=== PATIENT | female | born 1935 | race Caucasian/White ===

== ENCOUNTER 2017-11-24 21:56 | Emergency (ER) | payer MEDICARE, BC ==
--- NOTE | 2017-11-24 22:28 | EDM.PDOC ---
ED HPI GENERAL MEDICAL PROBLEM - General Stated Complaint: LT LEG CELLULITIS Time Seen by Provider: 11/24/17 21:56 Source of Information: Reports: Patient, Family (daughter) History Limitations: Reports: No Limitations - History of Present Illness INITIAL COMMENTS - FREE TEXT/NARRATIVE: 82 y.o.w.f came to the ed with her daughter due to pain, redness and swelling of her left lower leg. Pt things she may have been stung by a bee. No N/V/D no SOB or any other acute medical issues. BP 156/65 Pulse 100 RR 10 temp 36.9 Pulse ox 100% on RA Onset Date: 11/24/17 Onset Time: 08:00 Duration: Hour(s):, Constant Location: Reports: Lower Extremity, Left Quality: Reports: Ache, Burning Severity: Mild Improves with: Reports: Rest Worsens with: Reports: Movement Context: Reports: Other (bug bite?) Associated Symptoms: Reports: No Other Symptoms Right Lower Leg Pain Score (Numeric/FACES): 4 - Related Data Allergies Allergy/AdvReac Type Severity Reaction Status Date / Time Penicillins Allergy Intermediate Hives Verified 06/04/15 15:09 celecoxib [From Celebrex] Allergy Hypotension Verified 06/10/15 09:22 diclofenac sodium Allergy Swelling Verified 06/10/15 09:21 [From Voltaren] IVP DYE Allergy Intermediate Hives Uncoded 06/04/15 15:09 Home Meds: Home Meds Acetaminophen [Tylenol] 325 - 650 mg PO Q4HR PRN 06/04/15 [History] Albuterol [Proventil HFA] 6.7 gm INH Q4H PRN 06/04/15 [History] Calcium+Vitamin D+Vitamin K 500 mg PO BID 06/04/15 [History] Carboxymethylcell/Glycerin/Pf [Refresh Optive Sensitive Drops] 1 drop OP Q2HR PRN 06/04/15 [History] Cholecalciferol (Vitamin D3) [Vitamin D3] 4,000 unit PO DAILY 06/04/15 [History] Hydrocodone/Acetaminophen [[place] 10-325] 1 tab PO Q4H PRN 06/04/15 [History] Olopatadine [Patanol 0.1% Ophth Soln] 1 drop EYEBOTH BID 06/04/15 [History] Warfarin Sodium [Coumadin] 7.5 mg PO ASDIRECTED 02/26/16 [History] Warfarin [Coumadin] 5 mg PO ASDIRECTED 06/04/15 [History] traMADol HCl [Ultram] 50 mg PO Q6HR PRN 06/04/15 [History] Levofloxacin 500 mg PO DAILY #10 tablet 11/25/17 [Rx] ED ROS GENERAL - Review of Systems Review Of Systems: See Below Constitutional: Reports: No Symptoms HEENT: Reports: No Symptoms Respiratory: Reports: No Symptoms Cardiovascular: Reports: No Symptoms Endocrine: Reports: No Symptoms GI/Abdominal: Reports: No Symptoms : Reports: No Symptoms Musculoskeletal: Reports: Other (left leg swelling) Skin: Reports: Erythema (left lower leg) Neurological: Reports: No Symptoms Psychiatric: Reports: No Symptoms Hematologic/Lymphatic: Reports: No Symptoms Immunologic: Reports: No Symptoms ED EXAM, SKIN/RASH Exam: See Below Exam Limited By: No Limitations General Appearance: Alert, WD/WN, Mild Distress, Obese Eye Exam: Bilateral Eye: Normal Inspection Ears: Normal External Exam, Normal Canal Nose: Normal Inspection, Normal Mucosa Throat/Mouth: Normal Inspection, Normal Lips, Normal Voice, No Airway Compromise Head: Atraumatic, Normocephalic Neck: Normal Inspection, Supple, Non-Tender, Full Range of Motion Respiratory/Chest: No Respiratory Distress, Lungs Clear, Normal Breath Sounds, No Accessory Muscle Use, Chest Non-Tender Cardiovascular: Normal Peripheral Pulses, No Edema, No JVD, Irregularly Irregular Peripheral Pulses: 1+: Brachial (L) GI/Abdominal: Normal Bowel Sounds, Soft, Non-Tender, No Organomegaly, No Distention, No Abnormal Bruit (Female) Exam: Deferred Rectal (Female) Exam: Deferred Back Exam: Normal Inspection Extremities: Normal Range of Motion, Increased Warmth, Redness, Other (swelling of left lower leg) Neurological: Alert, Oriented, CN II-XII Intact, Normal Cognition, Normal Gait Psychiatric: Normal Affect, Normal Mood Skin: Warm, Dry, Rash Location, Skin: Lower Extremity, Left Characteristics: Maculopapular, Confluent Lymphatic: No Adenopathy Course - Vital Signs Text/Narrative:: 82 y.o.w.f came to the ed with her daughter due to pain, redness and swelling of her left lower leg. Pt things she may have been stung by a bee. No N/V/D no SOB or any other acute medical issues. BP 156/65 Pulse 100 RR 10 temp 36.9 Pulse ox 100% on RA PE; WNWD W F with left teg redness and swelling Imaging: US not available Labs: WBC nl H/H nl INR 2.57 Na 131 K 3.8 Blood Cx results are pending Impression: Cellilitis right lower leg, poss bug bite Tx: [place], pt refused pain meds Reexam: Improved Plan: D/C with instructions Addendum 11/25/2017: US left leg to R/O DVT was neg Last Recorded V/S: Last Vital Signs Temp 37.2 C 11/24/17 22:00 Pulse 100 11/24/17 22:00 Resp 18 11/24/17 22:00 BP 156/67 H 11/24/17 22:00 Pulse Ox 100 11/24/17 22:00 - Orders/Labs/Meds Orders: Active Orders 24 hr Category Date Time Status CULTURE BLOOD [BC] Urgent Lab 11/24/17 22:40 Results CULTURE BLOOD [BC] Urgent Lab 11/24/17 22:45 Received Blood Culture x2 Reflex Set [OM.PC] Urgent Oth 11/24/17 22:27 Ordered Labs: Laboratory Tests 11/24/17 11/24/17 11/24/17 Range/Units 22:45 22:45 22:45 WBC 5.9 (4.5-12.0) X10-3/uL RBC 3.97 (3.23-5.20) x10(6)uL Hgb 11.9 (11.5-15.5) g/dL Hct 34.8 (30.0-51.3) % MCV 87.6 (80-96) fL MCH 29.9 (27.7-33.6) pg MCHC 34.1 (32.2-35.4) g/dL RDW 13.7 (11.5-15.5) % Plt Count 99 L (125-369) X10(3)uL MPV 8.0 (7.4-10.4) fL Neut % (Auto) 81.5 (46-82) % Lymph % (Auto) 12.0 L (13-37) % [place] % (Auto) 5.9 (4-12) % Eos % (Auto) 0 L (1.0-5.0) % Baso % (Auto) 0 (0-2) % Neut # (Auto) 4.9 (1.6-8.3) # Lymph # (Auto) 0.7 (0.6-5.0) # [place] # (Auto) 0.3 (0.0-1.3) # Eos # (Auto) 0.0 (0.0-0.8) # Baso # (Auto) 0.0 (0.0-0.2) # PT 21.8 H (8.7-11.1) INR 2.27 H (0.89-1.13) Sodium 131 L (135-145) mmol/L Potassium 4.4 (3.5-5.3) mmol/L Chloride 99 L (100-110) mmol/L Carbon Dioxide 28 (21-32) mmol/L BUN 15 (7-18) mg/dL Creatinine 0.8 (0.55-1.02) mg/dL Est Cr Clr Drug Dosing TNP Estimated GFR (MDRD) > 60 (>60) BUN/Creatinine Ratio 18.8 (9-20) Glucose 114 (80-116) mg/dL Calcium 8.9 (8.6-10.2) mg/dL NT-Pro-B Natriuret Pep (<=450) pg/mL 11/24/17 Range/Units 22:45 WBC (4.5-12.0) X10-3/uL RBC (3.23-5.20) x10(6)uL Hgb (11.5-15.5) g/dL Hct (30.0-51.3) % MCV (80-96) fL MCH (27.7-33.6) pg MCHC (32.2-35.4) g/dL RDW (11.5-15.5) % Plt Count (125-369) X10(3)uL MPV (7.4-10.4) fL Neut % (Auto) (46-82) % Lymph % (Auto) (13-37) % [place] % (Auto) (4-12) % Eos % (Auto) (1.0-5.0) % Baso % (Auto) (0-2) % Neut # (Auto) (1.6-8.3) # Lymph # (Auto) (0.6-5.0) # [place] # (Auto) (0.0-1.3) # Eos # (Auto) (0.0-0.8) # Baso # (Auto) (0.0-0.2) # PT (8.7-11.1) INR (0.89-1.13) Sodium (135-145) mmol/L Potassium (3.5-5.3) mmol/L Chloride (100-110) mmol/L Carbon Dioxide (21-32) mmol/L BUN (7-18) mg/dL Creatinine (0.55-1.02) mg/dL Est Cr Clr Drug Dosing Estimated GFR (MDRD) (>60) BUN/Creatinine Ratio (9-20) Glucose (80-116) mg/dL Calcium (8.6-10.2) mg/dL NT-Pro-B Natriuret Pep 2280 H* (<=450) pg/mL Meds: Medications Discontinued Medications Generic Name Dose Route Start Last Admin Trade Name Mira PRN Reason Stop Dose Admin Levofloxacin 500 mg 11/25/17 00:01 11/25/17 00:36 Levaquin PO 11/25/17 00:02 500 mg ONETIME STA Administration Levofloxacin Confirm 11/25/17 00:29 Levaquin Administered 11/25/17 00:30 Dose 250 mg .ROUTE .STK-MED ONE Departure - Departure Time of Disposition: 00:03 Disposition: Home, Self-Care 01 Condition: Good Clinical Impression: Cellulitis of right lower extremity without foot, Edema of lower extremity - Discharge Information *PRESCRIPTION DRUG MONITORING PROGRAM REVIEWED*: Yes *COPY OF PRESCRIPTION DRUG MONITORING REPORT IN PATIENT RAZIA: Yes Prescriptions: Levofloxacin 500 mg PO DAILY #10 tablet Instructions: Cellulitis, Adult Referrals: Shubham Sheriff MD [Primary Care Provider] - Forms: ED Department Discharge Additional Instructions: Rest, elevation, please take the ABx as recommended, please come back at 9.30 am for U/S left leg to R/O DVT, follow up with your doc, come back to the ed if your symptoms get worse acutely - My Orders Last 24 Hours: My Active Orders 11/24/17 22:27 Blood Culture x2 Reflex Set [OM.PC] Urgent 11/24/17 22:40 CULTURE BLOOD [BC] Urgent 11/24/17 22:45 CULTURE BLOOD [BC] Urgent - Assessment/Plan Last 24 Hours: My Active Orders 11/24/17 22:27 Blood Culture x2 Reflex Set [OM.PC] Urgent 11/24/17 22:40 CULTURE BLOOD [BC] Urgent 11/24/17 22:45 CULTURE BLOOD [BC] Urgent
[2017-11-25] MEDS ORDERED: Levofloxacin 250 MG Tab PO STA (00:01)
[2017-11-25] MEDS ORDERED: Levofloxacin 250 MG Tab ONE (00:29)
== END 2017-11-25 00:40 | disposition home or self-care (01) ==
LOC: FB.ED 21:56
DX: L03.116 Cellulitis of left lower limb (principal); Z79.01 Long term (current) use of anticoagulants; Z91.041 Radiographic dye allergy status; Z79.899 Other long term (current) drug therapy; Z88.0 Allergy status to penicillin; Z88.8 Allergy status to other drugs, medicaments and biological substances
CPT/HCPCS: 36415; 80048; 83880; 85025; 85610; 87040; 99283; A9270